=== PATIENT | female | born 1990 | race Caucasian/White ===

== ENCOUNTER → 2016-11-13 | Outpatient (CLI) | payer BC ==
[~2016-11-13] MED LIST: CLIN1LOT5 TOP; ESOM20CA PO; FRCT/ PO; LACT1CAP6 PO; LEVOIUD INT UTER; ONDA4TAB10 SL; PRENTAB26 PO; PRLSR20 PO; TRET0.027 TOP; ZNTT/150 PO
== END | disposition home or self-care (01) ==
LOC: C.LAB1850 12:23
PROVIDERS: ATTEND Obstetrics & Gynecology
DX: Z34.90 Encounter for supervision of normal pregnancy, unspecified, unspecified trimester (principal)

== ENCOUNTER → 2016-12-12 | Outpatient (CLI) | payer BC ==
[2016-12-12 11:45] LABS: URINE APPEARANCE CLOUDY (CLEAR); URINE BILIRUBIN NEG (NEG); URINE COLOR YELLOW; URINE EPITHELIAL CELL AUTO >30 /lpf (0-5); URINE NITRITE NEG (NEG); URINE PH >= 9.0 (4.5-7.5); URINE SPECIFIC GRAVITY 1.021 (1.000-1.030); UROBILINOGEN NEG (NEG)
[2016-12-12 12:04] LABS: MANUAL MICROSCOPIC REQUIRED? NO; REVIEW REQ? NO; SULFASALICYLIC ACID NEG (NEG)
== END | disposition home or self-care (01) ==
LOC: C.LABSPEC 11:23
PROVIDERS: ATTEND Obstetrics & Gynecology
DX: Z34.00 Encounter for supervision of normal first pregnancy, unspecified trimester (principal)

== ENCOUNTER → 2016-12-18 | Outpatient (CLI) | payer BC ==
[2016-12-18 14:46] LABS: BASO % 0.2 %; BASO ABS # 0.02 K/uL (0-0.2); COMPLETE YES; EOS % 0.5 %; HEMATOCRIT 38.5 % (37-47); IG% 0.2 %; LYMPH % 19.2 %; MEAN CELL VOLUME 93.7 fL (80-100); MEAN CORPUSCULAR HEMOGLOBIN 32.8 pg (25-34); MEAN CORPUSCULAR HGB CONC 35.1 g/dl (32-36); MEAN PLATELET VOLUME 11.5 fL (7.4-10.4); MONO % 7.8 %; NEUT % 72.1 %; PLATELET COUNT 182 K/uL (130-400); RED BLOOD COUNT 4.11 M/uL (4.2-5.4); WHITE BLOOD COUNT 9.39 K/uL (4.8-10.8)
[2016-12-20 23:31] LABS: MUMPS IgG VALUE 1.02
[2016-12-21 14:42] LABS: CHLAMYDIA TRACH RNA*** NOT DETECTED (NOT DETECTED); GC (NEIS GONORRHOEAE)RNA** NOT DETECTED (NOT DETECTED)
== END | disposition home or self-care (01) ==
LOC: C.LAB1850 12:50
PROVIDERS: ATTEND Obstetrics & Gynecology
DX: Z34.00 Encounter for supervision of normal first pregnancy, unspecified trimester (principal); Z11.59 Encounter for screening for other viral diseases

== ENCOUNTER 2017-02-13 13:09 | Emergency (ER) | payer BC, OTHER ==
[~2017-02-13] VITALS: Ht 154.9 cm; Wt 54.2 kg
[~2017-02-13 13:09] MED LIST changes: -LACT1CAP6 PO; -ONDA4TAB10 SL; -PRENTAB26 PO; -ZNTT/150 PO
[2017-02-13 13:12] VITALS: TEMP 36.7; Ht 154.9 cm; Wt 54.2 kg
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
[2017-02-13] MEDS ORDERED: PRENTAB26 PO (13:55)
[2017-02-13] MEDS ORDERED: ZNTT/150 PO (13:55)
[2017-02-13] MEDS ORDERED: LACT1CAP6 PO (13:55)
--- NOTE | 2017-02-13 14:45 | DIAGNOSTIC IMAGING REPORT ---
Limited ultrasound LIMITED (US) CLINICAL HISTORY: Trauma pain TECHNIQUE: Ultrasound COMPARISON STUDY: None FINDINGS: Single, viable intrauterine . heart rate is confirmed. Estimated gestational age 17 weeks. Maternal cervix is closed. Placenta is posterior. IMPRESSION: Single, viable intrauterine of approximate 17 weeks gestational age. Electronically signed by: Eris Flowers M.D. 02/13/2017 2:43 PM Dictated Date/Time: 02/13/2017 2:42 PM
[2017-02-13 14:56] VITALS: BP 96/67; PULSE 80; O2SAT 100
== END 2017-02-13 15:18 | disposition home or self-care (01) ==
LOC: C.EDB 13:11
DX: Z04.1 Encounter for examination and observation following transport accident (principal); V43.52XA Car driver injured in collision with other type car in traffic accident, initial encounter; Y92.488 Other paved roadways as the place of occurrence of the external cause; Z3A.17 17 weeks gestation of pregnancy; Z79.899 Other long term (current) drug therapy

== ENCOUNTER → 2017-02-13 | Outpatient (CLI) | payer BC ==
[2017-02-13 11:56] LABS: GTGD 50 Grams
== END | disposition home or self-care (01) ==
LOC: C.LAB1850 09:11
PROVIDERS: ATTEND Obstetrics & Gynecology
DX: Z34.00 Encounter for supervision of normal first pregnancy, unspecified trimester (principal)

== ENCOUNTER → 2017-02-22 | Outpatient (CLI) | payer BC ==
[~2017-02-22] MED LIST changes: -CLIN1LOT5 TOP; -ESOM20CA PO; +LACT1CAP6 PO; -LEVOIUD INT UTER; +ONDA4TAB10 SL; +PRENTAB26 PO; -PRLSR20 PO; -TRET0.027 TOP; +ZNTT/150 PO
== END | disposition home or self-care (01) ==
LOC: C.LAB1850 08:22
PROVIDERS: ATTEND Obstetrics & Gynecology
DX: O28.1 Abnormal biochemical finding on antenatal screening of mother (principal); Z3A.00 Weeks of gestation of pregnancy not specified

== ENCOUNTER → 2017-05-01 | Outpatient (CLI) | payer BC ==
[2017-05-01 09:33] LABS: HEMATOCRIT 35.1 % (37-47)
[2017-05-01 13:56] LABS: URINE APPEARANCE CLOUDY (CLEAR); URINE BILIRUBIN NEG (NEG); URINE COLOR YELLOW; URINE EPITHELIAL CELL AUTO >30 /lpf (0-5); URINE NITRITE NEG (NEG); URINE PH 8.5 (4.5-7.5); URINE SPECIFIC GRAVITY 1.024 (1.000-1.030); UROBILINOGEN NEG (NEG)
[2017-05-01 13:58] LABS: MANUAL MICROSCOPIC REQUIRED? NO; REVIEW REQ? YES; SULFASALICYLIC ACID POS (NEG)
== END | disposition home or self-care (01) ==
LOC: C.LAB1850 08:03
PROVIDERS: ATTEND Obstetrics & Gynecology
DX: Z34.02 Encounter for supervision of normal first pregnancy, second trimester (principal)

== ENCOUNTER 2017-05-13 17:38 | Emergency (ER) | payer BC ==
[~2017-05-13] VITALS: Ht 157.5 cm; Wt 59.6 kg
[~2017-05-13 17:38] MED LIST changes: -ONDA4TAB10 SL
[2017-05-13 17:51] VITALS: TEMP 36.7; Ht 157.5 cm; Wt 59.6 kg
[2017-05-13 19:49] VITALS: BP 102/68; PULSE 86; O2SAT 99
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
[2017-05-13] MEDS ORDERED: ONDA4TAB10 SL (20:17)
== END 2017-05-13 20:18 | disposition home or self-care (01) ==
LOC: C.EDB 17:40 → C.EDD 20:18
DX: G43.909 Migraine, unspecified, not intractable, without status migrainosus (principal); Z33.1 Pregnant state, incidental; K21.9 Gastro-esophageal reflux disease without esophagitis; J45.909 Unspecified asthma, uncomplicated; K58.9 Irritable bowel syndrome, unspecified

== ENCOUNTER → 2017-05-16 | Outpatient (CLI) | payer BC ==
[~2017-05-16] MED LIST changes: +ONDA4TAB10 SL
[2017-05-16 17:45] LABS: BASO % 0.3 %; BASO ABS # 0.03 K/uL (0-0.2); COMPLETE YES; EOS % 0.7 %; HEMATOCRIT 35.1 % (37-47); IG% 1.8 %; LYMPH % 18.5 %; LYMPH ABS # 2.06 K/uL (1.2-3.4); MEAN CELL VOLUME 98.9 fL (80-100); MEAN CORPUSCULAR HGB CONC 33.3 g/dl (32-36); MEAN PLATELET VOLUME 9.9 fL (7.4-10.4); MONO % 7.5 %; NEUT % 71.2 %; PLATELET COUNT 209 K/uL (130-400); RED BLOOD COUNT 3.55 M/uL (4.2-5.4); WHITE BLOOD COUNT 11.13 K/uL (4.8-10.8)
[2017-05-16 18:20] LABS: URINE TOTAL PROTEIN 11.1 mg/dl (0-11.9)
[2017-05-16 18:24] LABS: ALT/SGPT 19 U/L (12-78); AST/SGOT 17 U/L (15-37); CREATININE 0.55 mg/dl (0.60-1.20); URIC ACID 1.9 mg/dl (2.6-7.2)
[2017-05-16 20:52] LABS: URINE TOTAL PROTEIN CALC 266.4 mg/24 hr (0-149.1)
== END | disposition home or self-care (01) ==
LOC: C.LAB1850 17:15
PROVIDERS: ATTEND Obstetrics & Gynecology
DX: O12.10 Gestational proteinuria, unspecified trimester (principal)

== ENCOUNTER → 2017-06-12 | Outpatient (CLI) | payer BC ==
[2017-06-12 13:35] LABS: HEMATOCRIT 36.1 % (37-47); MEAN CELL VOLUME 98.6 fL (80-100); MEAN CORPUSCULAR HEMOGLOBIN 32.2 pg (25-34); PLATELET COUNT 228 K/uL (130-400); RED BLOOD COUNT 3.66 M/uL (4.2-5.4); WHITE BLOOD COUNT 11.56 K/uL (4.8-10.8)
[2017-06-12 13:47] LABS: MEAN CORPUSCULAR HGB CONC 32.7 g/dl (32-36)
[2017-06-12 14:09] LABS: ALB/GLOB RATIO 0.8 (0.9-2); ALKALINE PHOSPHATASE 119 U/L (45-117); ALT/SGPT 12 U/L (12-78); AST/SGOT 10 U/L (15-37); BLOOD UREA NITROGEN 6 mg/dl (7-18); BUN/CREATININE RATIO 11.6 (10-20); CALCIUM 8.9 mg/dl (8.5-10.1); CARBON DIOXIDE 24 mmol/L (21-32); CHLORIDE 108 mmol/L (98-107); CREATININE 0.51 mg/dl (0.60-1.20); GLUCOSE 64 mg/dl (70-99); POTASSIUM 3.8 mmol/L (3.5-5.1); SODIUM 137 mmol/L (136-145)
== END | disposition home or self-care (01) ==
LOC: C.LAB1850 11:52
PROVIDERS: ATTEND Obstetrics & Gynecology
DX: O12.10 Gestational proteinuria, unspecified trimester (principal)

== ENCOUNTER → 2017-06-14 | Outpatient (CLI) | payer BC ==
[2017-06-14 08:41] LABS: PATIENT HEIGHT 154.9 cm
[2017-06-14 10:10] LABS: URINE TOTAL PROTEIN 21.2 mg/dl (0-11.9); URINE TOTAL PROTEIN CALC 445.2 mg/24 hr (0-149.1)
[2017-06-14 10:19] LABS: CREATININE 0.52 mg/dl (0.6-1.2)
== END | disposition home or self-care (01) ==
LOC: C.LAB1850 08:23
PROVIDERS: ATTEND Obstetrics & Gynecology
DX: R80.9 Proteinuria, unspecified (principal)

== ENCOUNTER → 2017-06-28 | Outpatient (CLI) | payer BC | END | disposition home or self-care (01) | LOC: C.LABSPEC 13:21 | PROVIDERS: ATTEND Obstetrics & Gynecology | DX: Z34.03 Encounter for supervision of normal first pregnancy, third trimester (principal) ==

== ENCOUNTER → 2017-07-05 | Outpatient (CLI) | payer BC ==
[2017-07-05 10:39] LABS: HEMATOCRIT 36.3 % (37-47); MEAN CELL VOLUME 97.3 fL (80-100); MEAN CORPUSCULAR HEMOGLOBIN 30.8 pg (25-34); MEAN CORPUSCULAR HGB CONC 31.7 g/dl (32-36); MEAN PLATELET VOLUME 10.6 fL (7.4-10.4); PLATELET COUNT 231 K/uL (130-400); RED BLOOD COUNT 3.73 M/uL (4.2-5.4); WHITE BLOOD COUNT 10.94 K/uL (4.8-10.8)
[2017-07-05 11:13] LABS: ALT/SGPT 13 U/L (12-78); BLOOD UREA NITROGEN 5 mg/dl (7-18); BUN/CREATININE RATIO 7.2 (10-20); CALCIUM 8.7 mg/dl (8.5-10.1); CARBON DIOXIDE 23 mmol/L (21-32); CHLORIDE 108 mmol/L (98-107); CREATININE 0.64 mg/dl (0.60-1.20); GLUCOSE 74 mg/dl (70-99); POTASSIUM 4.1 mmol/L (3.5-5.1); SODIUM 139 mmol/L (136-145)
[2017-07-05 11:16] LABS: ALB/GLOB RATIO 0.8 (0.9-2); ALKALINE PHOSPHATASE 155 U/L (45-117); AST/SGOT 17 U/L (15-37)
== END | disposition home or self-care (01) ==
LOC: C.RAD1850 09:07
PROVIDERS: ATTEND Obstetrics & Gynecology
DX: R80.9 Proteinuria, unspecified (principal)

== ENCOUNTER 2017-07-24 03:28 | Inpatient (IN) | payer BC ==
[~2017-07-24] VITALS: Ht 154.9 cm; Wt 62.6 kg
[~2017-07-24 03:28] MED LIST changes: -LACT1CAP6 PO
[2017-07-31] MEDS ORDERED: LACTATED RINGER'S 1000ML 500 ML IV PRN ×2 (07:48→14:22)
[2017-07-31] MEDS ORDERED: LACTATED RINGER'S 1000ML 1,000 ML IV PRN (07:48)
[2017-07-31] MEDS ORDERED: OXYTOCIN 30 UNITS/500ML NSS IV PRN ×2 (08:00→23:00)
[2017-07-31] MEDS: LACTATED RINGER'S 1000ML 1,000 ML IV SCH ×3 (08:12→15:20)
[2017-07-31] MEDS ORDERED: RANITIDINE HCL 150 MG TAB PO ONE ×2 (08:15→17:00)
[2017-07-31 08:16] LABS: HEMATOCRIT 33.8 % (37-47); MEAN CELL VOLUME 93.1 fL (80-100); MEAN CORPUSCULAR HEMOGLOBIN 30.9 pg (25-34); MEAN CORPUSCULAR HGB CONC 33.1 g/dl (32-36); MEAN PLATELET VOLUME 10.2 fL (7.4-10.4); PLATELET COUNT 231 K/uL (130-400); RED BLOOD COUNT 3.63 M/uL (4.2-5.4); WHITE BLOOD COUNT 10.83 K/uL (4.8-10.8)
[2017-07-31 08:44] VITALS: Ht 154.9 cm; Wt 62.6 kg
[2017-07-31] MEDS ORDERED: FENTANYL 2MCG/ML ROPIV 1.25MG/ML 100ML BAG EPI ONE (13:02)
[2017-07-31] MEDS ORDERED: EpHEDrine SULFATE INJ 50 MG/ML AMP ONE (13:02)
[2017-07-31] MEDS ORDERED: BUPIVACAINE 0.25% 30 ML VIAL ONE (13:02)
[2017-07-31] MEDS ORDERED: FENTANYL CITRATE INJ 50 MCG/1 ML 2 ML VIAL ONE (13:03)
[2017-07-31] MEDS ORDERED: NALOXONE HCL INJ 1 MG in SODIUM CHLORIDE 0.9% 1000ML 1,000 ML IV PRN (14:22)
[2017-07-31] MEDS ORDERED: NALOXONE HCL INJ 0.4 MG/1 ML VIAL/CARP IV PRN (14:30)
[2017-07-31] MEDS ORDERED: DiphenhydrAMINE HCL 50 MG/ML VIAL IV PRN (14:30)
[2017-07-31] MEDS ORDERED: EpHEDrine SULFATE INJ 50 MG/ML AMP IV PRN (14:30)
[2017-07-31] MEDS ORDERED: NALBUPHINE HCL INJ 10 MG/ML AMP IV PRN (14:30)
[2017-07-31] MEDS: CALCIUM CARBONATE 500 MG CHEWABLE PO PRN ×2 (17:44→19:47)
[2017-07-31] MEDS: FENTANYL 2MCG/ML ROPIV 1.25MG/ML 100ML BAG EPI PRN ×2 (19:06→20:05)
[2017-07-31] MEDS ORDERED: ONDANSETRON INJ 2 MG/ML 2 ML VIAL IV PRN (19:30)
[2017-07-31] MEDS ORDERED: SUPERCREAM 0.870 % 15GM JAR EXT PRN (23:00)
[2017-07-31] MEDS ORDERED: LANOLIN OINT EXT PRN ×2 (23:00)
[2017-07-31] MEDS ORDERED: HYDROCORTISONE ACETATE 25 MG SUPP PR PRN (23:00)
[2017-07-31] MEDS ORDERED: OXYCODONE/ACETAMINOPHEN 5-325 TAB PO PRN (23:00)
[2017-07-31] MEDS ORDERED: BENZOCAINE 20% AER SPR 82.5 GM CAN EXT PRN (23:00)
--- NOTE | 2017-07-31 23:56 | DELIVERY SUMMARY ---
DATE OF OPERATION: 07/31/2017 PREDELIVERY DIAGNOSES: 1. A 26-year-old G1, P0 at 41 weeks. 2. Induction of labor secondary to postdates. POSTDELIVERY DIAGNOSES: 1. A 26-year-old G1, P0 at 41 weeks. 2. Induction of labor secondary to postdates. PROCEDURES PERFORMED: Spontaneous vaginal delivery and repair of second-degree perineal laceration. DELIVERING SURGEON: Corie Morataya DO. ESTIMATED BLOOD LOSS: 300 mL. FINDINGS: Viable female with Apgars 8 and 9, weight pending. Please see nursery records. DESCRIPTION OF DELIVERY: The patient progressed to complete with epidural anesthesia. She then began to push. She spontaneously vaginally delivered a viable female from the cephalic presentation with the head in right occiput anterior position. The head delivered, there was a tight nuchal cord that was not able to reduced. Therefore, baby was delivered through. The head delivered followed by the anterior shoulder, followed by the posterior shoulder, followed by the body. Spontaneous cry was heard. The baby was placed on mother's abdomen. Delayed cord clamping was employed and then after 1 minute, the cord was doubly clamped and cut. The patient desired to attempt to donate cord blood even understanding that there may not be enough after delayed cord clamping. This collection was performed. The placenta was then delivered spontaneously intact with 3-vessel cord. Pitocin was given. The uterus and vagina were swept of all clots and debris. The uterus began to firm. The cervix, vagina and perineum were inspected and a second-degree perineal laceration was noted and repaired in standard fashion with 3-0 Vicryl in a running stitch. Excellent hemostasis was observed. The bladder was drained for approximately 200 mL of urine. At the conclusion of the delivery, sponge, instrument and needle counts were correct x2. Mother and baby tolerated the delivery well and are recovering in the room in stable and good condition. I attest to the content of the Intraoperative Record and any orders documented therein. Any exception s are noted below.
[2017-08-01] VITALS (8 sets, daily range): BP systolic 99–114; BP diastolic 59–86; PULSE 72–88; TEMP 36.4–36.6; O2SAT 98–100
[2017-08-01] MEDS: BUTALBITAL/ACETAMIN/CAFFEINE TAB PO PRN ×3 (02:16→21:25)
[2017-08-01] MEDS: IBUPROFEN 600 MG TAB PO PRN ×5 (02:21→21:24)
[2017-08-01 06:27] LABS: HEMATOCRIT 29.3 % (37-47)
--- NOTE | 2017-08-01 06:35 | Progress Note ---
Subjective Aug 01, 2017. Subjective conversation w/ patient, physical exam, chart review, lab review Ambulation: ambulating normally Voiding: no voiding problems Passing Gas: Yes Diet Tolerance: Regular Diet Lochia: Small Feeding Type: Breast Feeding Pain: Says feels sore in low abdomen Comment: Found pt resting comfortably. Says had a migraine headache immediately post- , relieved with Fioricet. Denies any other acute concerns. Review of Systems Constitutional: No fever, No chills Respiratory: No cough, No shortness of breath Cardiac: No chest pain, No edema Abdomen: No nausea, No vomiting, No diarrhea Female : No dysuria Objective Vital Signs Date Time Temp Pulse Resp B/P (MAP) Pulse Ox O2 Delivery O2 Flow Rate FiO2 08/01/17 03:35 36.4 72 16 99/59 (72) 100 Room Air 08/01/17 00:35 36.5 80 18 111/86 (94) 98 Room Air 08/01/17 00:35 Room Air Physical Exam General Appearance: WELL-APPEARING, WD/WN, NO APPARENT DISTRESS Respiratory/Chest: lungs clear, normal breath sounds, no respiratory distress Cardiovascular: regular rate, rhythm, no edema, no murmur Abdomen: normal bowel sounds, non tender, soft Fundus: Firm, Non-Tender, Relation to Umbilicus (approx one down) Extremities: normal range of motion, no pedal edema, no calf tenderness Laboratory Results Last 24 Hours Test 07/31/17 08:04 08/01/17 06:07 White Blood Count 10.83 K/uL Red Blood Count 3.63 M/uL Hemoglobin 11.2 g/dL 9.5 g/dL Hematocrit 33.8 % 29.3 % Mean Corpuscular Volume 93.1 fL Mean Corpuscular Hemoglobin 30.9 pg Mean Corpuscular Hemoglobin Concent 33.1 g/dl RDW Standard Deviation 48.6 fL RDW Coefficient of Variation 14.3 % Platelet Count 231 K/uL Mean Platelet Volume 10.2 fL Assessment and Plan Post- Day#: 1 Continue Routine Care: 26F s/p IOL for post-dates, now PPD #1. - Blood type A positive. GBS negative. Rubella immune. - Vital signs reviewed and stable. - Pain controlled with motrin and percocet. - No leg swelling or tenderness on calf palpation. Encourage ambulation. - Encourage breast feeding. - Hemoglobin pre-delivery 11.2, post-delivery 9.5. Bleeding has improved. Continue to monitor clinically. - Continue routine post-vaginal delivery care. - Pt agreed with above plan, all current questions answered. Dino Mitchell MD, PGY1 Transformation Manager Physician Supervision Note: I was present with Dr. Mitchell during the history and exam. I discussed the case with the resident and agree with the findings and plan as documented in the note. Any exceptions or clarifications are listed here: PPD#1 doing well. Continue routine care. Documented By: Corie Morataya Resident Tracking Resident Involvement: Resident Care Provided Care Provided: OB Delivery (OB rounds)
[2017-08-01] MEDS: DOCUSATE SODIUM 100 MG CAP PO SCH ×2 (07:29→20:09)
[2017-08-01] MEDS ORDERED: PRENATAL VITAMIN TAB PO SCH ×2 (08:00)
--- NOTE | 2017-08-01 08:01 | Anesthesia Procedure Note ---
Anesthesia Epidural Removal Nt Date & Time Aug 01, 2017 at 08:00 Vital Signs Pain Intensity: 6.0 Vital Signs Past 12 Hours Date Time Temp Pulse Resp B/P (MAP) Pulse Ox O2 Delivery O2 Flow Rate FiO2 08/01/17 03:35 36.4 72 16 99/59 (72) 100 Room Air 08/01/17 00:35 36.5 80 18 111/86 (94) 98 Room Air 08/01/17 00:35 Room Air Notes Mental Status: alert / awake / arousable, participated in evaluation Nausea / Vomiting: adequately controlled Pain: adequately controlled Airway Patency, RR, SpO2: stable & adequate BP & HR: stable & adequate Hydration State: stable & adequate Neuraxial Anesthesia: was administered, sensory block is resolved Anesthetic Complications: no major complications apparent, pt satisfied with anesthetic care Epidural: removed without complications, with tip intact
[2017-08-01] MEDS: RANITIDINE HCL 150 MG TAB PO SCH ×2 (08:35→17:00)
[2017-08-01] MEDS ORDERED: BISACODYL 5 MG TABEC PO SCH (20:00)
[2017-08-01] MEDS ORDERED: FOLIC ACID PO SCH (21:00)
[2017-08-01] MEDS ORDERED: MULTIVITAMIN PO SCH (21:00)
[2017-08-01] MEDS ORDERED: [UNRECOGNIZED DRUG - OTHER] PO SCH (21:00)
[2017-08-01] MEDS ORDERED: IRON PO SCH (21:00)
[2017-08-01] MEDS ORDERED: ONDANSETRON 8 MG TAB PO PRN (22:00)
[2017-08-02] MEDS: IBUPROFEN 600 MG TAB PO PRN (06:23)
--- NOTE | 2017-08-02 06:47 | Progress Note ---
Subjective Aug 02, 2017. Subjective conversation w/ patient, physical exam, chart review, lab review Ambulation: ambulating normally Voiding: no voiding problems Passing Gas: Yes Diet Tolerance: Regular Diet Lochia: Small Feeding Type: Breast Feeding Pain: Denies much abd pain/cramping Comment: Found pt resting comfortably, denies any acute c/o. Says continues to have migraines (same as life-long). Review of Systems Constitutional: No fever, No chills Respiratory: No cough, No shortness of breath Cardiac: No chest pain, No edema Abdomen: No nausea, No vomiting, No diarrhea Female : No dysuria Objective Vital Signs Date Time Temp Pulse Resp B/P (MAP) Pulse Ox O2 Delivery O2 Flow Rate FiO2 08/01/17 23:10 Room Air 08/01/17 23:10 36.4 86 16 99/64 (76) 100 Room Air 08/01/17 20:10 36.4 88 16 105/69 (81) 99 Room Air 08/01/17 16:00 36.6 77 18 107/71 (83) Room Air 08/01/17 16:00 Room Air 08/01/17 11:52 36.6 80 18 114/74 (87) 100 Room Air 08/01/17 09:17 100 Room Air 08/01/17 08:05 36.5 72 18 105/70 (82) 100 Room Air 08/01/17 07:30 Room Air Physical Exam General Appearance: WELL-APPEARING, WD/WN, NO APPARENT DISTRESS Respiratory/Chest: lungs clear, normal breath sounds, no respiratory distress Cardiovascular: regular rate, rhythm, no edema, no murmur Abdomen: normal bowel sounds, non tender, soft Fundus: Firm Extremities: normal range of motion, no pedal edema, no calf tenderness Assessment and Plan Post- Day#: 2 Continue Routine Care: 26F s/p , now PPD #2. - Blood type A positive. GBS negative. Rubella immune. - Vital signs reviewed and stable. - Pain controlled with motrin and Percocet. Also Fioricet for headache. - No leg swelling or tenderness on calf palpation. Encourage ambulation. - Encourage breast feeding. - Hemoglobin pre-delivery 11.2, post-delivery 9.5. Bleeding improving. Continue to monitor clinically. - Continue routine post-vaginal delivery care. Reviewed discharge precautions with patient. - Pt agreed with above plan, all current questions answered. Dino Mitchell MD, PGY1 Market Development Specialist Physician Supervision Note: I interviewed and examined the patient. Discussed with Dr. Mitchell and agree with findings and plan as documented in the note. Any exceptions or clarifications are listed here: [None] Documented By: Lesia Gabriel Resident Tracking Resident Involvement: Resident Care Provided Care Provided: OB Delivery (OB rounds)
[2017-08-02] MEDS ORDERED: BISACODYL 10 MG SUPP PR PRN (07:00)
--- NOTE | 2017-08-02 07:36 | Discharge Instructions ---
Discharge Instructions Date of Service Aug 02, 2017. Admission Reason for Admission: Induction Discharge Discharge Diagnosis / Problem: Recovery from vaginal delivery Discharge Goals Goal(s): Routine recovery after delivery Medications Continue Dispensed Medications: supercream, dermaplast, tucks, lansinoh Activity Recommendations Activity Limitations: per Instructions/Follow-up section . Instructions / Follow-Up Instructions / Follow-Up ACTIVITY RECOMMENDATIONS: * Gradual return to full activity over the next 2-3 weeks. * No lifting - nothing heavier than baby over the next 2-3 weeks. * Do not engage in vigorous exercise, sexual activity or sports until cleared by your physician. * Do not drive or operate any motorized equipment until cleared by your physician. * You may shower/bathe daily. MEDICATIONS: For discomfort or pain, you may use Acetaminophen (Tylenol), Ibuprofen (Advil), or Naproxen (Aleve) following the package directions. For constipation you may use Colace following the package directions. BREAST CARE: If you are not breast feeding: * Wear a supportive bra 24 hours a day for one to two weeks. * Avoid stimulating your breasts and nipples as much as possible during the first few weeks after delivery. * When taking a shower, have the warm water hit your back, not breasts. * When your breasts feel full, apply ice packs. Usually three to four times a day helps ease the discomfort. * Take a mild pain medication (Tylenol / Motrin) when you are uncomfortable. If breast feeding: * Use breast milk to lubricate nipples. Lansinoh cream may be used for sore nipples. You do not need to remove cream prior to breast feeding. If using a different brand of cream, check the label for directions regarding removal of cream prior to nursing. * Wear a supportive bra. * If having problems with breasts or breast feeding, call a road consultant or your health care provider. EPISIOTOMY CARE: After delivery, if you have an episiotomy (stitches), the following steps will ease discomfort and aid healing. * For the first 24 hours after delivery, place ice packs next to your episiotomy to help reduce swelling. * After the first 24 hour-period, sitz baths, either portable or in the tub, are suggested. A shower with a shower arm sprayed over the episiotomy may be comforting. * Kadi care should be done after each voiding and bowel movement. Squirt warm water from a plastic bottle over the perineum (region of the body between the anus and urinary opening) and pat dry. * Use Dermoplast to ease discomfort. Shake container. [place] directly over the episiotomy. Place a Tucks on a clean sanitary pad next to your episiotomy. SPECIAL CARE INSTRUCTIONS: When you are discharged from the hospital, it is important for you to follow the instructions listed below: * During the first week at home, you should be able to care for yourself and your baby. In addition, the usual light household activities are encouraged. * Limit your activities to the way you feel. Do not try to clean the house or move furniture. Be sensible. * If you actively engage in sports and have done so up until the time of your delivery, you may resume these activities as soon as you feel able. This may take up to one month or even longer. Use good judgment. * Continue to take your vitamins for at least six weeks after the of your baby. * Your diet need not be limited unless you were on a special diet before your delivery. Breast-feeding mothers need around 2500 calories per day and at least 64-80 ounces of fluid per day (8 to 10 glasses). * You should eat foods from the four major food groups. Crash diets or fad diets are to be avoided. Eating lean meats, fresh fruits and vegetables, low-fat dairy products, high fiber foods and a regular exercise program, will help you get back to your pre- weight without putting your health at risk. * Constipation is sometimes a problem after delivery. Take a mild laxative as needed. If breast feeding, Milk of Magnesia is acceptable to use. You may use a suppository or Fleets enema if no episiotomy. * A daily shower or tub bath is suggested. Be sure to thoroughly and gently dry the perineum. * A bloody vaginal discharge will usually continue until around four weeks post . A small amount of bleeding may continue for as long as six weeks. Vaginal discharge changes from the bright red bleeding after delivery to pink then brownish and finally yellowish-pink before becoming white and disappearing. * Bleeding may increase with activity. Your first period may come in 4-8 weeks. If you are breast feeding, your period may be delayed even longer. * [place] (sex) can begin whenever both you and your partner feel comfortable and do not have any form of genital infection. It is recommended that you wait at least six weeks for internal and external healing to occur. If you have questions, please talk to your health care practitioner. A condom should be used to prevent infection and . * Foreplay, gentle intercourse and lubrication is very important the first several times to prevent pain. A water-based lubricant such as K-Y jelly or Astroglide may be used. * If you have RH negative blood and your baby is RH positive, you will receive RHOGAM by injection prior to discharge. The nurse will give you a card to keep with you that has the date and place that you received RHOGAM after delivery. * During your care, you had a Rubella screen done to check for the presence of rubella antibodies in your blood. If your test was negative, you will receive a Rubella vaccine prior to discharge. This vaccine may cause a fever, soreness at the injection site and flu-like symptoms. If these symptoms persist, notify your health care practitioner. is not advised for one month after a Rubella vaccine. * Verbalizes understanding of car seat law as reviewed with patient nursing. * Car Seat hand-out given and reviewed with patient by nursing. * Shaken baby information reviewed with patient by nursing. Call you doctor if: * Heavy bleeding (saturating several pads an hour) or passing clots the size of your fist. * A fever >101 degrees F (38.3 degrees C) on two occasions four hours apart and /or chills. * Unusual pain in the pelvic or vaginal areas. * "Baby Blues" lasting longer than two weeks. If you have any questions or concerns, call your health care practitioner at . FOLLOW UP VISIT: * Please call the office at to schedule a 6 week examination. It is important you keep this appointment. It is important for you to make arrangements for either yearly or twice yearly check-ups thereafter. Current Hospital Diet Patient's current hospital diet: Regular OB Diet Discharge Diet Recommended Diet: Regular OB Diet Pending Studies Studies pending at discharge: no Medical Emergencies . Who to Call and When: Medical Emergencies: If at any time you feel your situation is an emergency, please call 911 immediately. . Non-Emergent Contact Non-Emergency issues call your: [employer] . . "Provider Documentation" section prepared by Dino Mitchell. . VTE Core Measure Inpt VTE Proph given/why not?: Treatment not indicated
[2017-08-02] MEDS ORDERED: MULTIVITAMIN PO SCH (08:00)
[2017-08-02] MEDS ORDERED: FOLIC ACID PO SCH (08:00)
[2017-08-02] MEDS ORDERED: [UNRECOGNIZED DRUG - OTHER] PO SCH (08:00)
[2017-08-02] MEDS ORDERED: IRON PO SCH (08:00)
[2017-08-02 08:10] VITALS: BP 107/67; PULSE 75; TEMP 36.6
[2017-08-02] MEDS: RANITIDINE HCL 150 MG TAB PO SCH (08:16)
[2017-08-02] MEDS: DOCUSATE SODIUM 100 MG CAP PO SCH (08:16)
[2017-08-02 12:30] VITALS: BP_DIAS 67; PULSE 75; TEMP 36.6
== END 2017-08-02 12:30 | disposition home or self-care (01) | DRG 775 ==
LOC: C.LD 07-31 07:42 → C.OBG 08-01 00:32
PROVIDERS: ADMIT Obstetrics & Gynecology; ATTEND Obstetrics & Gynecology
PROC: 3E033VJ Introduction of Other Hormone into Peripheral Vein, Percutaneous Approach (ICD-10-PCS; principal; 2017-07-31)
PROC: 0KQM0ZZ Repair Perineum Muscle, Open Approach (ICD-10-PCS; 2017-07-31)
PROC: 10E0XZZ Delivery of Products of Conception, External Approach (ICD-10-PCS; 2017-07-31)
DX: O48.0 Post-term pregnancy (principal); O70.1 Second degree perineal laceration during delivery; Z3A.41 41 weeks gestation of pregnancy; Z37.0 Single live birth

== ENCOUNTER 2017-07-30 19:01 | Outpatient (CLI) | payer BC ==
[~2017-07-30] VITALS: Ht 154.9 cm; Wt 64.1 kg
[~2017-07-30 19:01] MED LIST changes: +LACT1CAP6 PO
[2017-07-30 19:41] VITALS: Ht 154.9 cm; Wt 64.1 kg
== END 2017-07-30 21:35 | disposition home or self-care (01) ==
LOC: C.OPB 19:01 → C.LD 19:01 → C.OPB 21:35
PROVIDERS: ATTEND Obstetrics & Gynecology
DX: O48.0 Post-term pregnancy (principal); Z3A.40 40 weeks gestation of pregnancy; Z90.49 Acquired absence of other specified parts of digestive tract

== ENCOUNTER → 2017-09-13 | Outpatient (CLI) | payer BC ==
[~2017-09-13] MED LIST changes: -LACT1CAP6 PO; -ONDA4TAB10 SL
[2017-09-13 16:50] LABS: URINE APPEARANCE CLEAR (CLEAR); URINE BILIRUBIN NEG (NEG); URINE COLOR YELLOW; URINE EPITHELIAL CELL AUTO >30 /lpf (0-5); URINE NITRITE NEG (NEG); URINE SPECIFIC GRAVITY 1.005 (1.000-1.030); UROBILINOGEN NEG (NEG); ZZUR CULT IF INDIC CLEAN CATCH NO
[2017-09-13 16:51] LABS: MANUAL MICROSCOPIC REQUIRED? NO; REVIEW REQ? NO
== END | disposition home or self-care (01) ==
LOC: C.LABSPEC 14:49
PROVIDERS: ATTEND Obstetrics & Gynecology
DX: O12.13 Gestational proteinuria, third trimester (principal); Z3A.00 Weeks of gestation of pregnancy not specified

== ENCOUNTER → 2017-11-15 | Outpatient (CLI) | payer OTHER | END | disposition home or self-care (01) | LOC: C.LABSPEC 12:52 | PROVIDERS: ATTEND Physician Assistant | DX: Z30.430 Encounter for insertion of intrauterine contraceptive device (principal) ==